=== PATIENT | male | born 1985 ===

== ENCOUNTER 2020-06-26 05:10 | Emergency (ER) | payer SELFPAY ==
[~2020-06-26] VITALS: Ht 175.3 cm; Wt 78.3 kg
[2020-06-26] MEDS ORDERED: LIDOCAINE-MPF 1%, 5ML ONE (05:58)
[2020-06-26] MEDS ORDERED: DIPH,PERTUSS(ACELL),TET VAC/PF 0.5 ML IM-VACC ONE ×2 (05:59→06:00)
[2020-06-26] MEDS ORDERED: LIDOCAINE-MPF 1%, 5ML INFIL ONE (06:00)
[2020-06-26] MEDS ORDERED: SODIUM CHLORIDE 0.9% 1,000ML IVBOLUS ONE (06:00)
[2020-06-26] MEDS ORDERED: VANCOMYCIN PER PHARMACY MC PRN (06:00)
[2020-06-26] MEDS ORDERED: VANCOMYCIN 2,000 MG in SODIUM CHLORIDE 0.9% 500 ML IV ONE (06:00)
[2020-06-26 06:36] LABS: MEAN CORPUSCULAR HEMOGLOBIN 26.1 pg (27.5-34.5); MEAN CORPUSCULAR HGB CONC 33.3 g/dL (33.2-36.2); MEAN PLATELET VOLUME 6.7 fL (7.4-10.4); PLATELET COUNT 599 x10^3/uL (130-400); RED BLOOD COUNT 4.32 x10^6/uL (4.38-5.82); RED CELL DISTRIBUTION WIDTH 16.3 % (9.4-14.8)
[2020-06-26 06:40] LABS: ALBUMIN 2.6 g/dL (3.4-5.0); ANION GAP 9 mmol/L (5-15); CALCIUM 8.8 mg/dL (8.5-10.1); CHLORIDE 102 mmol/L (98-107); CREATININE 1.01 mg/dL (0.7-1.3)
--- NOTE | 2020-06-26 06:45 | NUR ---
PT IS A [employer] AND HAS A ABSCESS ON LEFT LAT / BACK AREA FOR THE LAST WEEK THAT HAS INCREASED IN SIZE. PT A/O X4 WITH EQUAL AND UNLABORED BREATHS
--- NOTE | 2020-06-26 07:00 | NUR ---
ASSUMING CARE OF PATIENT. REPORT FROM OLY DEVINE RN. PT ASLEEP WITH EVEN AND UNLABORED RESPIRATIONS. VSS. SHABAZZ.
[2020-06-26 07:07] LABS: MD YES
[2020-06-26 07:10] LABS: ANISOCYTOSIS 1+; BANDS%(MANUAL) 3 % (0-7); BASOS#(MANUAL) 0.17 x10^3/uL (0-0.1); BASOS% (MANUAL) 1 % (0-1); EOS#(MANUAL) 0.84 x10^3/uL (0.0-0.4); EOS% (MANUAL) 5 % (1-7); LYMPH#(MANUAL) 4.18 x10^3/uL (1-3.4); LYMPHS% (MANUAL) 25 % (22-44); MICROCYTOSIS 1+; MONOS% (MANUAL) 3 % (2-9); SEG#(MANUAL) 10.52 x10^3/uL (1.8-6.8); SEGS% (MANUAL) 63 % (42-75)
[2020-06-26 07:11] LABS: <PLATELET ESTIMATE> INCREASED; <PLT MORPHOLOGY> NORMAL PLT MORPH; OVALOCYTES 1+
--- NOTE | 2020-06-26 07:46 | NUR ---
pt awake. awaiting i&D. vss. nadn.
--- NOTE | 2020-06-26 08:04 | NUR ---
FARNAZ GARDUNO TO BEDSIDE FOR I&D.
[2020-06-26 08:14] VITALS: BP 119/72
--- NOTE | 2020-06-26 08:14 | NUR ---
BREAK RN: PT LAYING ON RIGHT SIDE, NADN/VSS. CALL LIGHT WITHIN REACH.
--- NOTE | 2020-06-26 08:38 | NUR ---
THIS RN CALLED TO PT ROOM. WHEN ENTERING THIS RN ASKED IF PT NEEDED ANYTHING. PT AGIATED SCREAMED "I NEED FUCKING GAUZE AND TAPE!"THIS RN ASKED PT TO NOT SPEAK IN THAT TONE AND SHE WILL GET HIM WHAT HE NEEDS. PT JUMPED FROM BED AND THREW BEDSIDE TRAY TOWARDS THIS RN. RN SHUT DOOR AND PRECEDED TO CALL SECURITY. PT THEN DRESSED SELF, RIPPED OUT IV (VERIFED REMOVED BY THIS RN) AND STATED HE WAS LEAVING. PT SHOWN OUT BUT THEN CAME BACK AND BEGAN SCREAMING BY FRONT DEST. SECURITY ARRIVED AND ESCORTED PT OUT.
--- NOTE | 2020-06-26 08:48 | NUR ---
PT LEFT PHONE FACULTY ADMINISTRATOR. PHONE FACULTY ADMINISTRATOR WAS PLACED IN RED BAG WITH PT LABEL AN TAKEN TO SECURITY.
== END 2020-06-26 08:51 | disposition left against medical advice (07) ==
LOC: ED 08:49
DX: L02.213 Cutaneous abscess of chest wall (principal); D72.829 Elevated white blood cell count, unspecified
CPT/HCPCS: 10060; 36415; 80048; 82040; 83605; 85025; 87040; 90471; 90715; 96361; 96374; 99284; J3370; J7030; J7040